=== PATIENT | female | born 1950 | race Caucasian/White ===

== ENCOUNTER 2016-12-21 16:18 | Emergency (ER) | payer BC ==
[2016-12-21 16:35] VITALS: PULSE 61; TEMP 98.1
--- NOTE | 2016-12-21 17:08 | CPEKG ---
Heart Rate: 60 RR Interval: 1000 P-R Interval: 156 QRSD Interval: 88 QT Interval: 440 QTC Interval: 440 P [place]: 44 QRS [place]: 20 T Wave [place]: 49 EKG Severity - NORMAL ECG - EKG Impression: SINUS RHYTHM Electronically Signed By: Erica Roe 21-Dec-2016 20:44:33
[2016-12-21] MEDS ORDERED: NS 1,000 ML IV ONE (17:16)
[2016-12-21] MEDS ORDERED: MECLIZINE HCL 25 MG TAB PO ONE (17:16)
--- NOTE | 2016-12-21 17:20 | EDPHY ---
H & P Stated Complaint: working outside yesterday/today with dizzyness/nausea HPI/ROS: CHIEF COMPLAINT: He had exposure, dizziness, nausea HISTORY OF PRESENT ILLNESS: Patient complains of working out in the heat yesterday morning and this morning. Yesterday she was feeling very dizzy, lightheaded nauseated around 10:30 a.m.. She stopped working, went inside and drink fluids. This significantly improved her symptoms throughout the day. She tried to work outside again today the symptoms returned again around tender 10 30. This time she went inside and drink fluids and did not improved. The dizziness is described as vertiginous and similar to previous episodes of vertigo. There is no headache. No neck pain or stiffness. No chest pain or shortness of breath. No syncope. Symptoms were worse with movement and position. They do improve with resting and lying still. If not improved today with fluid intake. was with her and said that she is very red she came inside that she was actually sweating. No other associated complaints or modifying factors REVIEW OF SYSTEMS: Ten systems reviewed and are negative unless otherwise noted in the HPI PAST MEDICAL HISTORY: Hypothyroid SOCIAL HISTORY: Nonsmoker. 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 Horizontal nystagmus, left greater than right. No vertical nystagmus. EOMs intact. No dysconjugate gaze. ENT, Mouth: Mucous membranes moist. EACs clear. Neck: Normal inspection, supple, non-tender Respiratory: Lungs are clear to auscultation. No wheezing, rhonchi or crackles. Cardiovascular: Regular rate and rhythm. No murmur. Pulses intact distally symmetrically. Gastrointestinal: Abdomen is soft and nontender Back: non-tender, no bony abnormalities Neurological: GCS 15. Cranial nerves 2-12 grossly intact. No pronator drift. No dysmetria. A&O, nonfocal, normal gait Skin: Warm and dry, no rash but no petechiae or purpura. Extremities: Nontender, no pedal edema Psychiatric: Mood and affect normal DIFFERENTIAL DIAGNOSES: Including but not limited to dehydration, acute kidney injury, vertigo, CVA, TIA , electrolyte disturbance, vertebrobasilar syndrome MDM: 5:15 p.m. Dizziness with nausea and heat exposure the last 2 days. She does have horizontal nystagmus, left greater than right. She has no headache. She has no focal deficits. Laboratory studies are pending. I have ordered IV fluid and meclizine. 6:00 p.m. Labs are all within normal limits. I have re-examined the patient. She is feeling significantly better at this time. This is after 1 L IV fluid, 12.5 mg of meclizine and 4 mg IV Zofran. We will ambulate her and re-evaluate. 6:35 p.m. Patient has ambulated without assistance. She has a steady gait. No ataxia. Her dizziness and nausea have significantly improved. I suspect this is a true peripheral vertigo. She will be treated with meclizine and Zofran. She is to follow up with primary care physician in the next 1-2 days. I have also provided ENT follow-up for her. She has strict return to the emergency department precautions for any worsening of symptoms, headache, unilateral complaints. She and her spouse at bedside are comfortable with this plan. She is discharged home in stable condition. SUPERVISION: Patient was evaluated in conjunction with the supervising physician Dr. Roe. Please see their note for details. Source: Patient, Family Exam Limitations: No limitations - Personal History Current Tetanus/Diphtheria Vaccine: Yes - Medical/Surgical History Hx Asthma: No Hx Chronic Respiratory Disease: No Hx Diabetes: No Hx Cardiac Disease: No Hx Renal Disease: No Hx Cirrhosis: No Hx Alcoholism: No Hx HIV/AIDS: No Hx Splenectomy or Spleen Trauma: No Other PMH: thyroid/ diverticulitis vertigo - Social History Smoking Status: Never smoked Constitutional: Initial Vital Signs Temperature (C) 98.1 F 12/21/16 16:33 Heart Rate 61 12/21/16 16:33 Respiratory Rate 20 12/21/16 16:33 Blood Pressure 170/89 H 12/21/16 16:33 O2 Sat (%) 95 12/21/16 16:33 O2 Delivery Mode Room Air Allergies/Adverse Reactions: Sulfa (Sulfonamide Antibiotics) Allergy (Intermediate, Verified 12/21/16 16:32) Hives Home Medications: Medication Instructions Recorded Levothyroxine Sodium [Synthroid] 50 mcg PO 05/20/11 Liothyronine Sodium [Cytomel 25 25 mcg PO 02/21/15 mcg (RX)] Meclizine HCl [Meclizine HCl 25 mg 25 mg PO BID PRN #15 tab 12/21/16 (RX,OTC)] Ondansetron Odt [Zofran Odt 4 mg 4 mg PO Q6 PRN #12 tab 12/21/16 (*)] Medical Decision Making - Data Points Laboratory Results: Laboratory Results 12/21/16 17:19 12/21/16 17:19 12/21/16 12/21/16 12/21/16 17:19 17:19 17:19 WBC 9.09 10^3/uL 10^3/uL (3.80-9.50) RBC 5.10 10^6/uL 10^6/uL (4.18-5.33) Hgb 15.9 g/dL g/dL (12.6-16.3) Hct 46.4 % % (38.0-47.0) MCV 91.0 fL fL (81.5-99.8) MCH 31.2 pg pg (27.9-34.1) MCHC 34.3 g/dL g/dL (32.4-36.7) RDW 14.0 % % (11.5-15.2) Plt Count 182 10^3/uL 10^3/uL (150-400) MPV 10.1 fL fL (8.7-11.7) Neut % (Auto) 74.6 % H % (39.3-74.2) Lymph % (Auto) 15.8 % % (15.0-45.0) [place] % (Auto) 6.7 % % (4.5-13.0) Eos % (Auto) 1.5 % % (0.6-7.6) Baso % (Auto) 0.8 % % (0.3-1.7) Nucleat RBC Rel Count 0.0 % % (0.0-0.2) Absolute Neuts (auto) 6.78 10^3/uL H 10^3/uL (1.70-6.50) Absolute Lymphs (auto) 1.44 10^3/uL 10^3/uL (1.00-3.00) Absolute Monos (auto) 0.61 10^3/uL 10^3/uL (0.30-0.80) Absolute Eos (auto) 0.14 10^3/uL 10^3/uL (0.03-0.40) Absolute Basos (auto) 0.07 10^3/uL 10^3/uL (0.02-0.10) Absolute Nucleated RBC 0.00 10^3/uL 10^3/uL (0-0.01) Immature Gran % 0.6 % % (0.0-1.1) Immature Gran # 0.05 10^3/uL 10^3/uL (0.00-0.10) PT 12.3 SEC SEC (12.0-15.0) INR 0.92 (0.83-1.16) APTT 27.9 SEC SEC (23.0-38.0) Sodium 134 mEq/L mEq/L (134-144) Potassium 4.3 mEq/L mEq/L (3.5-5.2) Chloride 101 mEq/L mEq/L (97-110) Carbon Dioxide 23 mEq/l mEq/l (22-31) Anion Gap 10 mEq/L mEq/L (8-16) BUN 19 mg/dL mg/dL (7-23) Creatinine 0.7 mg/dL mg/dL (0.6-1.0) Estimated GFR > 60 Glucose 103 mg/dL H mg/dL (70-100) Calcium 9.6 mg/dL mg/dL (8.5-10.4) Total Bilirubin 0.6 mg/dL mg/dL (0.1-1.4) Conjugated Bilirubin 0.2 mg/dL mg/dL (0.0-0.5) Unconjugated Bilirubin 0.4 mg/dL mg/dL (0.0-1.1) AST 24 IU/L IU/L (14-46) ALT 44 IU/L IU/L (9-52) Alkaline Phosphatase 84 IU/L IU/L (38-126) Troponin I < 0.012 ng/mL ng/mL (0-0.034) Total Protein 7.5 g/dL g/dL (6.3-8.2) Albumin 4.2 g/dL g/dL (3.5-5.0) Lipase 262.0 IU/L IU/L (23-300) Medications Given: Discontinued Medications Sodium Chloride (Ns) 1,000 mls @ 0 mls/hr IV ONCE ONE; Wide Open PRN Reason: Protocol Stop: 12/21/16 17:17 Last Admin: 12/21/16 17:40 Dose: 1,000 mls Meclizine HCl (Meclizine Hcl) 12.5 mg PO EDNOW ONE Stop: 12/21/16 17:17 Last Admin: 12/21/16 17:40 Dose: 12.5 mg Ondansetron HCl (Zofran) 4 mg IVP EDNOW ONE Stop: 12/21/16 17:28 Last Admin: 12/21/16 17:40 Dose: 4 mg Departure - Departure Disposition: Home, Routine, Self-Care Clinical Impression: Vertigo Condition: Good Instructions: Vertigo (ED) Additional Instructions: 1. Meclizine as prescribed as needed 2. Zofran as prescribed as needed 3. Follow up with primary care physician and ENT physicians 4. Return here for any worsening symptoms, any difficulty ambulating, any persistent vomiting, any headache, any slurred speech or facial droop Referrals: Holly Ocasio MD [Primary Care Provider] - As per Instructions Carly Capone MD [Medical Doctor] - As per Instructions Prescriptions: Meclizine HCl [Meclizine HCl 25 mg (RX,OTC)] 25 mg PO BID PRN #15 tab PRN Reason: Dizziness Ondansetron Odt [Zofran Odt 4 mg (*)] 4 mg PO Q6 PRN #12 tab PRN Reason: Nausea/Vomiting, Use 1st
[2016-12-21] MEDS ORDERED: ONDANSETRON 4 MG/2 ML VIAL ONE (17:23)
[2016-12-21] MEDS ORDERED: ONDANSETRON 4 MG/2 ML VIAL IVP ONE (17:27)
[2016-12-21 17:33] LABS: % IMMATURE GRANULYOCYTES 0.6 % (0.0-1.1); ABSOLUTE IMMATURE GRANULOCYTES 0.05 10^3/uL (0.00-0.10); ADD DIFF? NO; ADD MORPH? NO; ADD SCAN? NO; ATYPICAL LYMPHOCYTE FLAG 0 (0-99); FRAGMENT RBC FLAG 0 (0-99); HEMATOCRIT 46.4 % (38.0-47.0); HEMOGLOBIN 15.9 g/dL (12.6-16.3); LEFT SHIFT FLG 10 (0-99); LIPEMIA HEMOLYSIS FLAG 90 (0-99); MEAN CELL HEMOGLOBIN 31.2 pg (27.9-34.1); MEAN CELL HEMOGLOBIN CONCENTR. 34.3 g/dL (32.4-36.7); MEAN PLATELET VOLUME 10.1 fL (8.7-11.7); PLATELET CLUMPS FLAG 0 (0-99); PLATELET COUNT 182 10^3/uL (150-400)
[2016-12-21 17:39] LABS: ALANINE AMINOTRANSFERASE 44 IU/L (9-52); ALBUMIN 4.2 g/dL (3.5-5.0); ALKALINE PHOSPHATASE 84 IU/L (38-126); ANION GAP 10 mEq/L (8-16); ASPARTATE AMINOTRANSFERASE 24 IU/L (14-46); BILIRUBIN,TOTAL 0.6 mg/dL (0.1-1.4); BILIRUBIN-CONJUGATED 0.2 mg/dL (0.0-0.5); BILIRUBIN-UNCONJUGATED 0.4 mg/dL (0.0-1.1); CALCIUM 9.6 mg/dL (8.5-10.4); CARBON DIOXIDE 23 mEq/l (22-31); CHLORIDE 101 mEq/L (97-110); CREATININE 0.7 mg/dL (0.6-1.0); GLOMERULAR FILTRATION RATE > 60; GLUCOSE 103 mg/dL (70-100); POTASSIUM 4.3 mEq/L (3.5-5.2); SODIUM 134 mEq/L (134-144); TOTAL PROTEIN 7.5 g/dL (6.3-8.2)
[2016-12-21 17:41] LABS: APTT 27.9 SEC (23.0-38.0); INR 0.92 (0.83-1.16); PROTIME(PATIENT) 12.3 SEC (12.0-15.0)
[2016-12-21 17:50] LABS: TROPONIN I < 0.012 ng/mL (0-0.034)
[2016-12-21 18:48] VITALS: BP 160/98; RESP 16; O2SAT 92
== END 2016-12-21 18:47 | disposition home or self-care (01) ==
DX: R42 Dizziness and giddiness (principal); E86.9 Volume depletion, unspecified
CPT/HCPCS: 96374; J2405

== ENCOUNTER 2017-03-27 09:08 | Emergency (ER) | payer BC ==
--- NOTE | 2017-03-27 09:40 | EDPHY ---
H & P Time Seen by Provider: 03/27/17 09:22 HPI/ROS: Chief complaint. Vertigo HPI. 67-year-old female with vertigo for 1 day. Similar to previous symptoms. She took meclizine at 5:00 a.m. and felt better for a couple hours. Her symptoms now have returned and her dizziness is worse with moving her head and changing position. She is better with her head still. She has had nausea vomiting. No chest pain, shortness of breath, abdominal pain. She has had some URI symptoms for the last week. She had headache to the back of her head with vomiting today but when she is not vomiting she does not have a headache. Denies focal weakness or paresthesias ROS Constitutional. no fever/chills, no weakness Eyes. no problems with vision ENT. URI symptoms Cardiovascular. no chest pain Respiratory. no shortness of breath, no cough Abdominal. No abdominal pain but nausea and vomiting . no problems urinating MS. no calf pain/swelling, no neck/back pain, no joint pain Skin. no rash Lymph. no swollen glands Neuro. Headache with vomiting and dizziness Past Medical/Surgical History: Vertigo, hypothyroid, diverticulitis Social History: , nonsmoker, no alcohol Smoking Status: Never smoked Physical Exam: General Appearance: Alert well-developed female mild distress vital signs are stable Eyes: Pupils equal and round no pallor or injection. Horizontal nystagmus ENT, no hemotympanum or Sena sign no oral pharyngeal injection. Respiratory: There are no retractions, lungs are clear to auscultation. Cardiovascular: Regular rate and rhythm. Gastrointestinal: Abdomen is soft and nontender, no masses, bowel sounds normal. Neurological: Awake and alert, sensory and motor exams grossly normal. Speech is normal. Cranial nerves normal there is no pronator drift. [id number] intact. [id number] intact. Skin: Warm and dry, no rashes. Musculoskeletal: Neck is supple nontender. Extremities symmetrical, full range of motion. Psychiatric: Patient is oriented X 3, there is no agitation. Constitutional: Initial Vital Signs Temperature (C) 36.7 C 03/27/17 09:13 Heart Rate 79 03/27/17 09:13 Respiratory Rate 18 03/27/17 09:13 Blood Pressure 201/99 H 03/27/17 09:13 O2 Sat (%) 94 03/27/17 09:13 O2 Delivery Mode Room Air O2 (L/minute) 2 Allergies/Adverse Reactions: Sulfa (Sulfonamide Antibiotics) Allergy (Intermediate, Verified 03/27/17 09:18) Hives Home Medications: Medication Instructions Recorded Levothyroxine Sodium [Synthroid] 50 mcg PO 05/20/11 Liothyronine Sodium [Cytomel 25 25 mcg PO 02/21/15 mcg (RX)] Meclizine HCl [Meclizine HCl 25 mg 25 mg PO BID PRN #15 tab 12/21/16 (RX,OTC)] Azithromycin [Zithromax] 250 mg PO DAILY #6 tab 03/27/17 Meclizine HCl 25 mg PO Q6-8PRN PRN #10 tablet 03/27/17 Ondansetron Odt [Zofran Odt 4 mg 4 mg PO Q4 03/27/17 (*)] Ondansetron Odt [Zofran Odt] 4 mg PO Q4PRN PRN #4 tab 03/27/17 Medical Decision Making - Diagnostics EKG Interpretation: EKG interpreted by me shows normal sinus rhythm with normal interval. Left axis deviation. QRS is otherwise normal there is no significant ST elevation or depression. No arrhythmia. The rate is 58. Procedures: IV normal saline. Meclizine, Ativan, Zofran. ED Course/Re-evaluation: Re-evaluation at 11:35 a.m.-- Sleeping Re-evaluation again at 12:35 p.m.. Patient has her since her symptoms are resolved. She feels much better. The patient and I and her discussed laboratory evaluation including treatment plan criteria for return importance of follow-up and further evaluation. She expresses understanding and agreement. We discussed antibiotics for her upper respiratory congestion as this may be inciting and precipitating her vertigo. Differential Diagnosis: This appears to be peripheral vertigo. She had horizontal nystagmus. She is now essentially back to normal with symptoms resolved. She has normal neurologic exam. She does have upper respiratory infection. - Data Points Laboratory Results: Laboratory Results 03/27/17 09:35 03/27/17 09:35 03/27/17 03/27/17 09:35 09:35 WBC 8.83 10^3/uL 10^3/uL (3.80-9.50) RBC 5.35 10^6/uL H 10^6/uL (4.18-5.33) Hgb 16.8 g/dL H g/dL (12.6-16.3) Hct 48.1 % H % (38.0-47.0) MCV 89.9 fL fL (81.5-99.8) MCH 31.4 pg pg (27.9-34.1) MCHC 34.9 g/dL g/dL (32.4-36.7) RDW 13.5 % % (11.5-15.2) Plt Count 188 10^3/uL 10^3/uL (150-400) MPV 10.1 fL fL (8.7-11.7) Neut % (Auto) 78.3 % H % (39.3-74.2) Lymph % (Auto) 15.2 % % (15.0-45.0) [place] % (Auto) 4.1 % L % (4.5-13.0) Eos % (Auto) 0.2 % L % (0.6-7.6) Baso % (Auto) 0.6 % % (0.3-1.7) Nucleat RBC Rel Count 0.0 % % (0.0-0.2) Absolute Neuts (auto) 6.92 10^3/uL H 10^3/uL (1.70-6.50) Absolute Lymphs (auto) 1.34 10^3/uL 10^3/uL (1.00-3.00) Absolute Monos (auto) 0.36 10^3/uL 10^3/uL (0.30-0.80) Absolute Eos (auto) 0.02 10^3/uL L 10^3/uL (0.03-0.40) Absolute Basos (auto) 0.05 10^3/uL 10^3/uL (0.02-0.10) Absolute Nucleated RBC 0.00 10^3/uL 10^3/uL (0-0.01) Immature Gran % 1.6 % H % (0.0-1.1) Immature Gran # 0.14 10^3/uL H 10^3/uL (0.00-0.10) Sodium 135 mEq/L mEq/L (134-144) Potassium 3.9 mEq/L mEq/L (3.5-5.2) Chloride 103 mEq/L mEq/L (97-110) Carbon Dioxide 20 mEq/l L mEq/l (22-31) Anion Gap 12 mEq/L mEq/L (8-16) BUN 14 mg/dL mg/dL (7-23) Creatinine 0.6 mg/dL mg/dL (0.6-1.0) Estimated GFR > 60 Glucose 135 mg/dL H mg/dL (70-100) Calcium 9.6 mg/dL mg/dL (8.5-10.4) Troponin I < 0.012 ng/mL ng/mL (0.000-0.034) Medications Given: Discontinued Medications Acetaminophen (Tylenol) 1,000 mg PO EDNOW ONE Stop: 03/27/17 10:10 Last Admin: 03/27/17 10:20 Dose: 1,000 mg Sodium Chloride (Ns) 1,000 mls @ 0 mls/hr IV ONCE ONE; Wide Open PRN Reason: Protocol Stop: 03/27/17 10:08 Last Admin: 03/27/17 10:20 Dose: 1,000 mls Lorazepam (Ativan Injection) 0.5 mg IVP EDNOW ONE Stop: 03/27/17 10:10 Last Admin: 03/27/17 10:20 Dose: 0.5 mg Meclizine HCl (Meclizine Hcl) 25 mg PO EDNOW ONE Stop: 03/27/17 10:09 Last Admin: 03/27/17 10:20 Dose: 25 mg Ondansetron HCl (Zofran) 4 mg IVP EDNOW ONE Stop: 03/27/17 10:08 Last Admin: 03/27/17 10:20 Dose: 4 mg Departure - Departure Disposition: Home, Routine, Self-Care Clinical Impression: Vertigo Condition: Good Instructions: Vertigo (ED) Additional Instructions: May use meclizine every 6-8 hours. Zithromax is antibiotic. Zofran if needed for nausea. Drink plenty of fluids and stay hydrated. Return for worsening symptoms. Re-evaluation in 2 days if not continuing to improve Referrals: Holly Ocasio MD [Primary Care Provider] - 2-3 days, if not improved Prescriptions: Azithromycin [Zithromax] 250 mg PO DAILY #6 tab Meclizine HCl 25 mg PO Q6-8PRN PRN #10 tablet PRN Reason: Dizziness Ondansetron Odt [Zofran Odt] 4 mg PO Q4PRN PRN #4 tab PRN Reason: Nausea/Vomiting, Use 1st
[2017-03-27] MEDS ORDERED: NS 1,000 ML IV ONE (10:07)
[2017-03-27] MEDS ORDERED: ONDANSETRON 4 MG/2 ML VIAL IVP ONE (10:07)
[2017-03-27] MEDS ORDERED: MECLIZINE HCL 25 MG TAB PO ONE (10:08)
[2017-03-27] MEDS ORDERED: ACETAMINOPHEN 500 MG TAB PO ONE (10:09)
[2017-03-27] MEDS ORDERED: LORazepam 2 MG/ML INJ IVP ONE (10:09)
[2017-03-27 10:16] LABS: % IMMATURE GRANULYOCYTES 1.6 % (0.0-1.1); ABSOLUTE IMMATURE GRANULOCYTES 0.14 10^3/uL (0.00-0.10); ADD DIFF? NO; ADD MORPH? NO; ADD SCAN? NO; ATYPICAL LYMPHOCYTE FLAG 0 (0-99); FRAGMENT RBC FLAG 0 (0-99); HEMATOCRIT 48.1 % (38.0-47.0); HEMOGLOBIN 16.8 g/dL (12.6-16.3); LEFT SHIFT FLG 10 (0-99); LIPEMIA HEMOLYSIS FLAG 90 (0-99); MEAN CELL HEMOGLOBIN 31.4 pg (27.9-34.1); MEAN CELL HEMOGLOBIN CONCENTR. 34.9 g/dL (32.4-36.7); MEAN CELL VOLUME 89.9 fL (81.5-99.8); MEAN PLATELET VOLUME 10.1 fL (8.7-11.7); PLATELET CLUMPS FLAG 0 (0-99); PLATELET COUNT 188 10^3/uL (150-400); RED BLOOD CELL COUNT 5.35 10^6/uL (4.18-5.33); RED CELL DISTRIBUTION WIDTH 13.5 % (11.5-15.2)
[2017-03-27 10:21] LABS: ANION GAP 12 mEq/L (8-16); CALCIUM 9.6 mg/dL (8.5-10.4); CARBON DIOXIDE 20 mEq/l (22-31); CHLORIDE 103 mEq/L (97-110); CREATININE 0.6 mg/dL (0.6-1.0); GLOMERULAR FILTRATION RATE > 60; GLUCOSE 135 mg/dL (70-100); POTASSIUM 3.9 mEq/L (3.5-5.2); SODIUM 135 mEq/L (134-144)
[2017-03-27 10:23] VITALS: RESP 16
[2017-03-27 10:33] LABS: TROPONIN I < 0.012 ng/mL (0.000-0.034)
--- NOTE | 2017-03-27 10:48 | CPEKG ---
Heart Rate: 58 RR Interval: 1034 P-R Interval: 160 QRSD Interval: 84 QT Interval: 476 QTC Interval: 468 P [place]: 56 QRS [place]: -1 T Wave [place]: 38 EKG Severity - NORMAL ECG - EKG Impression: SINUS RHYTHM Electronically Signed By: Poncho Barnes 27-Mar-2017 15:31:56
[2017-03-27 12:03] VITALS: BP 157/77; PULSE 56; O2SAT 95
[2017-03-27 12:04] VITALS: TEMP 97.9
== END 2017-03-27 13:08 | disposition home or self-care (01) ==
DX: R42 Dizziness and giddiness (principal); R11.2 Nausea with vomiting, unspecified
CPT/HCPCS: 96374; J2060; J2405

== ENCOUNTER 2018-03-05 14:42 | Inpatient (IN) | payer BC, OTHER ==
--- NOTE | 2018-03-05 14:49 | EDPHY ---
H & P Stated Complaint: 2 weeks mid sterna cp radiates to back r neck/shoulder/burping Time Seen by Provider: 03/05/18 14:48 HPI/ROS: CHIEF COMPLAINT: Chest pain, dyspnea HISTORY OF PRESENT ILLNESS: The patient presents to the ED with a 2 week history of intermittent chest pain and increasing dyspnea on exertion. The patient describes a substernal chest discomfort which is not precipitated by exertion. There is some radiation of the pain to her right shoulder. She does report increasing dyspnea on exertion. The patient reports that she has been having belching and some epigastric pain after eating which is also new. She denies any asymmetric calf pain or swelling. She denies pleuritic chest pain. She currently reports 0/10 chest pain. Past medical history is significant for untreated hypertension. There is no family history of coronary artery disease per her report. REVIEW OF SYSTEMS: A comprehensive 10 point review of systems is otherwise negative aside from elements mentioned in the history of present illness. Source: Patient Exam Limitations: No limitations - Personal History Current Tetanus Diphtheria and Acellular Pertussis (TDAP): Yes - Medical/Surgical History Hx Asthma: No Hx Chronic Respiratory Disease: No Hx Diabetes: No Hx Cardiac Disease: No Hx Renal Disease: No Hx Cirrhosis: No Hx Alcoholism: No Hx HIV/AIDS: No Hx Splenectomy or Spleen Trauma: No Other PMH: thyroid/ diverticulitis vertigo - Social History Smoking Status: Never smoked - Physical Exam Exam: General Appearance: Alert, no distress Eyes: Pupils equal and round no pallor or injection ENT, Mouth: Mucous membranes moist Respiratory: There are no retractions, lungs are clear to auscultation Cardiovascular: Regular rate and rhythm Gastrointestinal: Tenderness to palpation in the epigastrium Neurological: A&O, normal motor function, normal sensory exam, normal cranial nerves Skin: Warm and dry, no rashes Musculoskeletal: Neck is supple nontender Extremities: symmetrical, full range of motion Psychiatric: Patient is oriented X 3, there is no agitation Constitutional: Initial Vital Signs Temperature (C) 36.8 C 03/05/18 14:44 Heart Rate 76 03/05/18 14:44 Respiratory Rate 18 03/05/18 14:44 Blood Pressure 192/98 H 03/05/18 14:44 O2 Sat (%) 95 03/05/18 14:44 O2 Delivery Mode Room Air Allergies/Adverse Reactions: Sulfa (Sulfonamide Antibiotics) Allergy (Intermediate, Verified 03/27/17 09:18) Hives Home Medications: Medication Instructions Recorded Herbals/Supplements -Info Only 1 ea PO DAILY 03/05/18 Levothyroxine [Synthroid 75 mcg 75 mcg PO DAILY06 03/05/18 (*)] Multivitamins [Multivitamin (*)] 1 each PO DAILY 03/05/18 Medical Decision Making - Diagnostics EKG Interpretation: EKG: Complete interpretation has been separately recorded in the [facility] archive. Summary impression: Sinus rhythm, ST segment elevation noted in leads V1 and V2 which appear consistent with septal hypertrophy. There is some suggestion of this on her prior EKG in 2017. Imaging Results: Right upper quadrant ultrasound: Images reviewed by myself and discussed with radiologist Dr. Bassem Hill. Impression: Normal Chest x-ray PA/lateral two view: Images reviewed by myself and discussed with radiologist Dr. Bassem Hill. Impression: Hiatal hernia, airway disease otherwise normal ED Course/Re-evaluation: The patient presents to the ED with several weeks of nonexertional chest pain, dyspnea on exertion and dyspepsia with right upper quadrant tenderness. The patient's initial EKG does demonstrate some repolarization changes noted in the septal leads. Her initial troponin was elevated at 0.25. I spoke with Dr. Sundeep Donovan on the telephone at 15:05. In reviewed the patient' s EKG. It appears to be isolated ST segment elevation in V2 only and does not meet criteria for STEMI. The patient will undergo an echocardiogram and get stat cardiology consultation by Dr. Donovan. The patient was given a 324 mg dose of aspirin. The patient will be admitted to the hospitalist service. I discussed her case with Dr. Walker at 3:45 p.m.. Right upper quadrant ultrasound is also been ordered for evaluation of her abdominal tenderness. 4:00 p.m.: The patient's blood pressure is 155/78. Differential Diagnosis: Differential diagnosis considered includes acute coronary syndrome, myocardial infarction, pericarditis, pancreatitis, cholecystitis, gastroesophageal reflux - Data Points Laboratory Results: Laboratory Results 03/05/18 14:55 03/05/18 14:55 03/05/18 03/05/18 03/05/18 15:30 14:59 14:55 WBC RBC Hgb Hct MCV MCH MCHC RDW Plt Count MPV Neut % (Auto) Lymph % (Auto) [place] % (Auto) Eos % (Auto) Baso % (Auto) Nucleat RBC Rel Count Absolute Neuts (auto) Absolute Lymphs (auto) Absolute Monos (auto) Absolute Eos (auto) Absolute Basos (auto) Absolute Nucleated RBC Immature Gran % Immature Gran # Sodium 141 mEq/L mEq/L (135-145) Potassium 4.3 mEq/L mEq/L (3.3-5.0) Chloride 108 mEq/L mEq/L (97-110) Carbon Dioxide 24 mEq/l mEq/l (22-31) Anion Gap 9 mEq/L mEq/L (8-16) BUN 19 mg/dL mg/dL (7-23) Creatinine 0.8 mg/dL mg/dL (0.6-1.0) Estimated GFR > 60 Glucose 117 mg/dL H mg/dL (70-100) Calcium 9.5 mg/dL mg/dL (8.5-10.4) Total Bilirubin 0.5 mg/dL mg/dL (0.1-1.4) Conjugated Bilirubin 0.1 mg/dL mg/dL (0.0-0.5) Unconjugated Bilirubin 0.4 mg/dL mg/dL (0.0-1.1) AST 32 IU/L IU/L (14-46) ALT 38 IU/L IU/L (9-52) Alkaline Phosphatase 91 IU/L IU/L (38-126) POC Troponin I 0.25 ng/mL H ng/mL (0.00-0.08) Troponin I 0.233 ng/mL H ng/mL (0.000-0.034) Total Protein 7.1 g/dL g/dL (6.3-8.2) Albumin 4.1 g/dL g/dL (3.5-5.0) Lipase 101 IU/L IU/L (23-300) 03/05/18 14:55 WBC 10.82 10^3/uL H 10^3/uL (3.80-9.50) RBC 5.30 10^6/uL 10^6/uL (4.18-5.33) Hgb 16.4 g/dL H g/dL (12.6-16.3) Hct 48.4 % H % (38.0-47.0) MCV 91.3 fL fL (81.5-99.8) MCH 30.9 pg pg (27.9-34.1) MCHC 33.9 g/dL g/dL (32.4-36.7) RDW 14.4 % % (11.5-15.2) Plt Count 206 10^3/uL 10^3/uL (150-400) MPV 10.2 fL fL (8.7-11.7) Neut % (Auto) 73.8 % % (39.3-74.2) Lymph % (Auto) 16.9 % % (15.0-45.0) [place] % (Auto) 6.3 % % (4.5-13.0) Eos % (Auto) 2.1 % % (0.6-7.6) Baso % (Auto) 0.6 % % (0.3-1.7) Nucleat RBC Rel Count 0.0 % % (0.0-0.2) Absolute Neuts (auto) 7.98 10^3/uL H 10^3/uL (1.70-6.50) Absolute Lymphs (auto) 1.83 10^3/uL 10^3/uL (1.00-3.00) Absolute Monos (auto) 0.68 10^3/uL 10^3/uL (0.30-0.80) Absolute Eos (auto) 0.23 10^3/uL 10^3/uL (0.03-0.40) Absolute Basos (auto) 0.07 10^3/uL 10^3/uL (0.02-0.10) Absolute Nucleated RBC 0.00 10^3/uL 10^3/uL (0-0.01) Immature Gran % 0.3 % % (0.0-1.1) Immature Gran # 0.03 10^3/uL 10^3/uL (0.00-0.10) Sodium Potassium Chloride Carbon Dioxide Anion Gap BUN Creatinine Estimated GFR Glucose Calcium Total Bilirubin Conjugated Bilirubin Unconjugated Bilirubin AST ALT Alkaline Phosphatase POC Troponin I Troponin I Total Protein Albumin Lipase Medications Given: Discontinued Medications Aspirin (Aspirin) 324 mg PO EDNOW ONE Stop: 03/05/18 15:45 Last Admin: 03/05/18 16:14 Dose: 324 mg Point of Care Test Results: Chemistry 03/05/18 14:59 POC Troponin I 0.25 ng/mL H ng/mL (0.00-0.08) Departure - Departure Disposition: [facility] [place] Inpatient Acute Clinical Impression: Acute coronary syndrome, Hiatal hernia Condition: Fair
[2018-03-05 15:05] LABS: PLATELET COUNT 206 10^3/uL (150-400)
[2018-03-05] MEDS ORDERED: ASPIRIN 81 MG CHEWABLE TAB PO ONE (15:44)
[2018-03-05] MEDS ORDERED: ONDANSETRON 4 MG/2 ML VIAL IVP PRN (15:45)
[2018-03-05] MEDS ORDERED: ONDANSETRON DISINTEGRATING 4 MG TAB PO PRN (15:45)
[2018-03-05] MEDS ORDERED: D5W 1/2 NS 1,000 ML IV SCH (15:45)
[2018-03-05] MEDS ORDERED: ACETAMINOPHEN 325 MG TAB PO PRN (15:45)
--- NOTE | 2018-03-05 16:00 | CPEKG ---
Test Reason : OPEN Blood Pressure : / mmHG Vent. Rate : 070 BPM Atrial Rate : 070 BPM P-R Int : 136 ms QRS Dur : 086 ms QT Int : 380 ms P-R-T Axes : 057 006 049 degrees QTc Int : 410 ms Sinus rhythm Anteroseptal infarct, age indeterminate Confirmed by Shaquille Zamora ([id number]) on 03/05/2018 4:00:05 PM Referred By: Confirmed By:Shaquille Zamora
--- NOTE | 2018-03-05 16:15 | ASMTCMCOM ---
CM Note CM Note Notes: Pt presented to the Emergency Department with chest pain and dyspnea. History includes untreated HTN, vertigo and diverticulitis. Pt is and lives with her . Per MD notes, pt to be admitted for further evaluation and treatment. Discharge needs remain unclear at this time; anticipate pt will likely return home independently when medically stable. CM will continue to follow. Discharge Plan: To be determined, likely independent Date Signed: 03/05/2018 04:14 PM Electronically Signed By:Janie De Anda RN
[2018-03-05] MEDS ORDERED: IOPAMIDOL (ISOVUE 370) 100 ML BTL IV ONE (17:09)
--- NOTE | 2018-03-05 18:08 | GCON ---
CARDIOLOGY CONSULTATION DATE OF CONSULTATION: 03/05/2018 INDICATION FOR CONSULTATION: Chest pain, shortness of breath with elevated troponin. HISTORY OF PRESENT ILLNESS: The patient is a pleasant 68-year-old female with a past medical of hypo thyroidism as well as a history of malignant melanoma status post surgical resection x2 in 2005, who presents to [facility] with ongoing complaints of substernal dany st tightness associated with right neck and jaw pain that radiates down the right arm. She also repo rts symptoms of increasing shortness of breath, dyspnea on exertion, exertional intolerance, fatigue, and associated diaphoresis with onset of chest pain. The patient states she was in her usual state of health until approximately 1 month ago when she bega n to develop right-sided neck/jaw pain and arm pain. She states these symptoms have been consistent for the last 4 weeks. She states these symptoms are often exacerbated with exertion, not improved wi th change in position, and unresponsive to medical therapy with nonsteroidal anti-inflammatory medica tions. In addition to her right-sided symptoms, she has been having intermittent episodes of substernal ches t tightness. She describes discomfort as "someone standing on my chest." She describes at worst the pain is 8/10 and is associated with shortness of breath, nausea, and diaphoresis. She states these episodes are occasionally associated with exertion but often occur spontaneously. She states the sym ptoms can last from 20 minutes to 1 hour and resolve spontaneously. She states she has been having 5 -6 episodes of chest pressure and tightness for the last 2 weeks every day. Currently, at the time of my exam, she is chest pain-free. She does have some of her ongoing right-s ided neck and pain down the right arm. The patient also describes discomfort that radiates from her chest to the mid scapula directly to her back. On exam today, she is markedly hypertensive with a blood pressure of 192/98. She states her primary care physician, Dr. Holly Ocasio, has been recommending antihypertensive medications for the last s everal years, which she has refused secondary to her concerns about "[employer]." The patient denies any complaints of palpitations, dizziness, lightheadedness, near syncope, or synco pe. She denies any complaints of PND, orthopnea, or lower extremity edema. She denies any complaint s of abdominal pain. No complaints of fever, chills, sweats, or weight loss. PAST MEDICAL HISTORY: Notable for hypothyroidism. She also has history of malignant melanoma x2, st atus post surgical resection 2005. PAST SURGICAL HISTORY: Includes appendectomy in 1977. MEDICATIONS ON ADMISSION: Include levothyroxine 75 mcg daily, multivitamin, and herbal supplement. ALLERGIES TO MEDICATION: Sulfa resulted in hives. PAST SOCIAL HISTORY: She is . She has 3 children. 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 She drink s a half glass of wine every other day. She does not use marijuana or illicit drugs. 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 FAMILY HISTORY: She has no siblings. Her mother at the age of 76 from Alzheimer's. Her father at the age of 91. EXAM: VITAL SIGNS: Blood pressure 192/98, heart rate 76 in sinus rhythm, respiratory rate of 18, ox ygen saturation 95% on room air. GENERAL: She is awake, alert, oriented, appropriate. No apparent distress. NECK: There is no evidence of JVP or carotid bruits. LUNGS: Clear to auscultation bilat erally. CARDIAC: S1, S2. Regular rate and rhythm. There are no murmurs, rubs, or gallops. PMI is not displaced. Anterior chest wall is nontender to palpation. ABDOMEN: Soft, nontender, nondisten ded. There is no pulsatile mass or abdominal bruit. EXTREMITIES: She does have 2+ radial pulses an d 2+ posterior tibial and dorsalis pedis pulses. DATA: White blood cell count of 10.82, hemoglobin of 16.4, hematocrit of 48.4, platelet count 206. Sodium 141, potassium 4.3, chloride 108, bicarb 24, BUN 19, creatinine 0.8, glucose 117, AST 32, ALT 38. Point care troponin of 0.25, serum troponin of 0.233, lipase 101, albumin 4.1, alkaline phosphat ase 91. ECG from 1453 this afternoon demonstrates sinus rhythm at 70 beats per minute. There are Q-waves in V1 and V2. There are biphasic T-waves in leads V2 and V3. Compared to previous ECG in March 2017, there is loss of R-wave in V2 suggestive of age-indeterminate anterior septal infarct. No evidence of acute ST-segment elevation myocardial infarction. Normal intervals. Normal axis. Chest x-ray demonstrates mild peribronchial thickening and a hiatal hernia. No other abnormalities n oted. Abdominal ultrasound is essentially negative with no evidence of choledocholithiasis. Liver, pancrea s, and right kidney are negative for acute abnormality. There is a 5 mm presumably benign echogenic focus in the right hepatic lobe. IMPRESSION: 1. Hypertensive urgency. 2. Substernal chest pressure with radiation to the neck, jaw, right shoulder, and midscapular region . SUMMARY: The patient is a pleasant 68-year-old female with ongoing symptoms for the last 1 month con cerning for symptoms consistent with angina. Symptoms also are suggestive of poorly controlled hyper tension. She reportedly has had a known history of borderline blood pressure control over the last s everal years and has avoided any antihypertensive medications despite recommendations from her primar care physician, Dr. Holly Ocasio. With blood pressure of 192/98 with pain to the mid shoulder blade would recommend CTA to rule out aor tic dissection. If there is no evidence of aortic dissection, would start patient on full-dose Lovenox, aspirin, and nitroglycerin drip for improved blood pressure control. Echocardiogram pending this evening. PLAN: 1. CTA to assess for possible aortic dissection. 2. Initiate nitroglycerin drip, titrate to systolic blood pressure in the 140s. 3. If CTA is negative, would start Lovenox 1 mg/kg subcu q.12 hours. 4. Stat echocardiogram to be performed this evening. 5. Patient will remain n.p.o. after midnight in anticipation of left heart catheterization to be per formed tomorrow morning. 6. Risks and benefits of left heart catheterization have been reviewed in detail with the patient. She is agreeable to pursue. 7. Will pursue left heart catheterization sooner if she becomes unstable or develops further progres teagan of symptoms despite medical management. 8. We will also check fasting lipid profile tomorrow morning. 9. The patient has no contraindication to dual antiplatelet therapy. She denies any history of cliff rgy. No history of bleeding issues. Last colonoscopy was 5 years ago and did have polyps removed. She states she is scheduled for a repeat colonoscopy in the near future. I have reviewed my findings with Dr. Zamora. /[id number]/MODL
--- NOTE | 2018-03-05 19:05 | ECHO ---
[email or web address] [address] Main: [phone] Fax: Transthoracic Echocardiogram Name: MARGO JOHNSON MR#: [id number] Study Date: 03/05/2018 Study Time: 05:57 PM Date of : 1950 Age: 68 year(s) Height: 162.6 cm (64 in.) Weight: 79.38 kg (175 lb.) BSA: 1.85 m2 Gender: Female Examination: Echo Indication: HTN Crisis, Chest Pain, Positive Troponin Image Quality: Contrast: Requested by: Andrew Walker BP: 196 mmHg/118 mmHg Heart Rate: Rhythm: Normal sinus rhythm Indication: HTN Crisis, Chest Pain, Positive Troponin Procedure Staff Microphone Operator: Kevin Champion RDCS Reading Physician: Julio Cesar Donovan MD Requesting Provider: Conclusions: Normal size left ventricle. Mild concentric LV hypertrophy. Normal global systolic LV function. EF is 72 %. No regional wall motion abnormality. Grade 1 diastolic dysfunction (abnormal relaxation). Normal RV function. The left atrium is normal in size. Evidence of atrial septal aneurys. The right atrium is normal in size. Mild tricuspid regurgitation is present. The pulmonary artery pressure is mildly increased. Right ventricular systolic pressure measures 42mmHg. No pericardial effusion. Measurements: Chambers Valvular Assessment AV/MV Valvular Assessment TV/PV Normal Normal Normal Name Value Range Name Value Range Name Value Range Ao Chasidy (MM): 3.1 cm (2.2 cm-3.7 AV Vmax: 1.26 m/s (1 m/s-1.7 TR Vmax: 3.05 mm/s ( - ) cm) m/s) TR PGmax: 37 mmHg ( - ) IVSd (2D): 1.2 cm (0.6 cm-1.1 AV maxP mmHg ( - ) syst. PAP: 42 mmHg ( - ) cm) LVOT Vmax: 1.03 m/s (0.7 m/s-1.1 PV Vmax: 0.88 m/s (0.6 m/s-0.9 LVDd (2D): 4.3 cm (3.9 cm-5.3 m/s) m/s) cm) MV E Vmax: 0.61 m/s ( - ) PV PGmax: 3 mmHg ( - ) LVDs (2D): 2.6 cm (2.1 cm-4 MV A Vmax: 1.12 m/s ( - ) cm) MV E/A: 0.54 ( - ) LVPWd (2D): 1.0 cm ( - ) LVEF (2D): 72 (>=54 %) Patient: MARGO JOHNSON Study Date: 03/05/2018 Page 1 of 2 05:57 PM Continued Measurements: Chambers Valvular Assessment AV/MV Valvular Assessment TV/PV Name Value Name Value Name Value LADs Lon.0 cm MV E/E' Septal: 16.00 CVP (est.): 5 mmHg LA Area: 19.2 cm2 MV E/E' Lateral: 12.50 LA Volume: 51 ml LA Volume Index: 27.6 ml/m2 Findings: Left Ventricle: Normal size left ventricle. Mild concentric LV hypertrophy. Normal global systolic LV function. EF is 72 %. No regional wall motion abnormality. Grade 1 diastolic dysfunction (abnormal relaxation). Right Ventricle: Normal size right ventricle. Normal RV function. Left Atrium: The left atrium is normal in size. Evidence of atrial septal aneurys. Right Atrium: The right atrium is normal in size. Mitral Valve: The mitral valve is normal in appearance and function. Trivial mitral valve regurgitation. Aortic Valve: The aortic valve is tri-leaflet. Minimal aortic cusp calcification is noted. There is no significant aortic valve regurgitation. Tricuspid Valve: The tricuspid valve appears normal. Mild tricuspid regurgitation is present. The pulmonary artery pressure is mildly increased. Right ventricular systolic pressure measures 42mmHg. Pulmonic Valve: The pulmonic valve is normal in appearance and function. Aorta: The aorta is normal. Pericardium: No pericardial effusion. (No Signature Object) Patient: MARGO JOHNSON Study Date: 03/05/2018 Page 2 of 2 05:57 PM [id number]
[2018-03-05] MEDS ORDERED: NITROGLYCERIN 0.4 MG BTL SL PRN (19:35)
[2018-03-05] MEDS ORDERED: hydrALAZINE 20 MG/ML VIAL IVP PRN (19:36)
--- NOTE | 2018-03-05 19:40 | PDGENHP ---
History and Physical - Chief Complaint Acute chest pain - History of Present Illness Primary care provider: Dr. Holly Ocasio HPI: 68-year-old female presenting with acute chest pain characterized as intense pressure located in the substernal area with associated dyspnea. She reports that the chest pain has intermittently occurred at rest and her shortness of breath is seemingly exacerbated with exertion. She has also had some radiation of the pain into the right shoulder and some belching which accompanies oral intake. Her symptoms have not been alleviated with NSAIDs, and she reports overall reduction exercise tolerance over the past 2 weeks. She does report that she has recently seen her primary care provider and her systolic blood pressure was notably 168 at that time. The patient elected for non pharmacologic management at that time. History Information - Allergies/Home Medication List Allergies/Adverse Reactions: Sulfa (Sulfonamide Antibiotics) Allergy (Intermediate, Verified 03/27/17 09:18) Hives Home Medications: Herbals/Supplements -Info Only 1 ea PO DAILY 03/05/18 [Last Taken Unknown] Levothyroxine [Synthroid 75 mcg (*)] 75 mcg PO DAILY06 03/05/18 [Last Taken ] Multivitamins [Multivitamin (*)] 1 each PO DAILY 03/05/18 [Last Taken Unknown] I have personally reviewed and updated: family history, medical history, social history, surgical history - Past Medical History hypertension (Untreated) Additional medical history: Hypothyroidism. 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 Review of Systems Review of Systems: ROS: 10pt was reviewed & negative except for what was stated in HPI & below Cardiac: Reports: chest pain Respiratory: Reports: shortness of breath Gastrointestinal: Reports: other (Belching) Physical Exam Physical Exam: Temp Pulse Resp BP Pulse Ox 36.6 C 64 12 148/94 H 94 03/05/18 18:40 03/05/18 18:40 03/05/18 18:40 03/05/18 18:40 03/05/18 18:40 Constitutional: no apparent distress, appears nourished, not in pain Eyes: PERRL, anicteric sclera, EOMI Ears, Nose, Mouth, Throat: moist mucous membranes, hearing normal, ears appear normal, no oral mucosal ulcers Cardiovascular: regular rate and rhythym, no murmur, rub, or gallop, No edema Respiratory: no respiratory distress, no rales or rhonchi, clear to auscultation Gastrointestinal: normoactive bowel sounds, soft, non-tender abdomen, no palpable masses, No distension Skin: warm, No erythema, No rash Musculoskeletal: other (Full range of motion bilateral shoulders without any pain elicited, no tenderness to palpation over the left pectoralis muscle) Neurologic: AAOx3, sensation intact bilaterally, No weakness Psychiatric: interacting appropriately, not anxious, not encephalopathic, thought process linear Lab Data & Imaging Review 03/05/18 14:55 03/05/18 14:55 WBC 10.82 10^3/uL (3.80-9.50) H 03/05/18 14:55 RBC 5.30 10^6/uL (4.18-5.33) 03/05/18 14:55 Hgb 16.4 g/dL (12.6-16.3) H 03/05/18 14:55 Hct 48.4 % (38.0-47.0) H 03/05/18 14:55 MCV 91.3 fL (81.5-99.8) 03/05/18 14:55 MCH 30.9 pg (27.9-34.1) 03/05/18 14:55 MCHC 33.9 g/dL (32.4-36.7) 03/05/18 14:55 RDW 14.4 % (11.5-15.2) 03/05/18 14:55 Plt Count 206 10^3/uL (150-400) 03/05/18 14:55 MPV 10.2 fL (8.7-11.7) 03/05/18 14:55 Neut % (Auto) 73.8 % (39.3-74.2) 03/05/18 14:55 Lymph % (Auto) 16.9 % (15.0-45.0) 03/05/18 14:55 Callaway % (Auto) 6.3 % (4.5-13.0) 03/05/18 14:55 Eos % (Auto) 2.1 % (0.6-7.6) 03/05/18 14:55 Baso % (Auto) 0.6 % (0.3-1.7) 03/05/18 14:55 Nucleat RBC Rel Count 0.0 % (0.0-0.2) 03/05/18 14:55 Absolute Neuts (auto) 7.98 10^3/uL (1.70-6.50) H 03/05/18 14:55 Absolute Lymphs (auto) 1.83 10^3/uL (1.00-3.00) 03/05/18 14:55 Absolute Monos (auto) 0.68 10^3/uL (0.30-0.80) 03/05/18 14:55 Absolute Eos (auto) 0.23 10^3/uL (0.03-0.40) 03/05/18 14:55 Absolute Basos (auto) 0.07 10^3/uL (0.02-0.10) 03/05/18 14:55 Absolute Nucleated RBC 0.00 10^3/uL (0-0.01) 03/05/18 14:55 Immature Gran % 0.3 % (0.0-1.1) 03/05/18 14:55 Immature Gran # 0.03 10^3/uL (0.00-0.10) 03/05/18 14:55 Sodium 141 mEq/L (135-145) 03/05/18 14:55 Potassium 4.3 mEq/L (3.3-5.0) 03/05/18 14:55 Chloride 108 mEq/L (97-110) 03/05/18 14:55 Carbon Dioxide 24 mEq/l (22-31) 03/05/18 14:55 Anion Gap 9 mEq/L (8-16) 03/05/18 14:55 BUN 19 mg/dL (7-23) 03/05/18 14:55 Creatinine 0.8 mg/dL (0.6-1.0) 03/05/18 14:55 Estimated GFR > 60 03/05/18 14:55 Glucose 117 mg/dL (70-100) H 03/05/18 14:55 Calcium 9.5 mg/dL (8.5-10.4) 03/05/18 14:55 Total Bilirubin 0.5 mg/dL (0.1-1.4) 03/05/18 14:55 Conjugated Bilirubin 0.1 mg/dL (0.0-0.5) 03/05/18 14:55 Unconjugated Bilirubin 0.4 mg/dL (0.0-1.1) 03/05/18 14:55 AST 32 IU/L (14-46) 03/05/18 14:55 ALT 38 IU/L (9-52) 03/05/18 14:55 Alkaline Phosphatase 91 IU/L (38-126) 03/05/18 14:55 POC Troponin I 0.25 ng/mL (0.00-0.08) H 03/05/18 14:59 Troponin I 0.233 ng/mL (0.000-0.034) H 03/05/18 15:30 Total Protein 7.1 g/dL (6.3-8.2) 03/05/18 14:55 Albumin 4.1 g/dL (3.5-5.0) 03/05/18 14:55 Lipase 101 IU/L (23-300) 03/05/18 14:55 Visualized and Interpreted EKG results: Yes EKG Interpretation: Positive for: other (Normal sinus rhythm with ST elevation isolated in V2, Q-wave in lead 3, T-wave inversions in leads V2 to V3) Assessment & Plan Assessment: 68-year-old female presents with acute chest pain and dyspnea most likely secondary to acute coronary syndrome Plan: 1. Acute coronary syndrome. Suspected, acute, new problem this provider, further workup indicated. Indicated by positive troponin 0.25, leukocytosis, chest pain with exertional symptoms, dynamic EKG changes which may represent either missed myocardial infarction or acute coronary syndrome -reviewed outside records including 03/27/2017 emergency department report for [facility] by Dr. Poncho Barnes, there was an EKG at that time which demonstrated normal T-waves in leads V2 to V3 -currently chest pain free but if recurs, give sublingual nitroglycerin -treat with aspirin, Lovenox, statin, oxygen, hold beta-mirna given sinus bradycardia -cycle cardiac enzymes -cardiac catheterization in a.m. 2. Hypertensive emergency. Systolic blood pressure 192 on presentation, improved with treatment of chest discomfort -discussed with Dr. Sundeep Donovan, we agreed that if the patient's chest discomfort recurs, in the setting of significantly elevated systolic blood pressure, would recommend treating with sublingual nitroglycerin and subsequent nitroglycerin drip if needed -patient will most likely require an oral antihypertensive medication moving forward, favor DEANDRE-inhibitor, initiate 5 mg lisinopril Diet. Regular, NPO after midnight with IV fluids Prophylaxis. Moderate risk patient, on Lovenox Code. Full Disposition. Anticipated discharge 03/06, pending stability of above. If patient requires prolonged length of stay experiences any additional complications from a cardiac standpoint, she shall be upgraded to inpatient admission status tomorrow.
[2018-03-05] MEDS: LISINOPRIL 2.5 MG TAB PO SCH (20:35)
[2018-03-05] MEDS: ENOXAPARIN 80 MG/0.8 ML SYR SC SCH (20:35)
[2018-03-05] MEDS: ATORVASTATIN CALCIUM 40 MG TAB PO SCH (20:41)
[2018-03-06 04:21] LABS: PLATELET COUNT 181 10^3/uL (150-400)
[2018-03-06] MEDS ORDERED: Herbals/Supplements -Info Only PO SCH (09:00)
[2018-03-06] MEDS: LISINOPRIL 2.5 MG TAB PO SCH (09:03)
[2018-03-06] MEDS: MULTIVITAMINS 1 EACH TAB PO SCH (09:03)
[2018-03-06] MEDS: LEVOTHYROXINE 75 MCG TAB PO SCH (09:03)
[2018-03-06] MEDS: ASPIRIN EC 325 MG TAB PO SCH (09:03)
[2018-03-06] MEDS: ATORVASTATIN CALCIUM 40 MG TAB PO SCH (09:04)
[2018-03-06] MEDS: ENOXAPARIN 80 MG/0.8 ML SYR SC SCH (10:06)
[2018-03-06] MEDS ORDERED: FAMOTIDINE 20 MG TAB PO ONE (10:16)
[2018-03-06] MEDS ORDERED: diphenhydrAMINE 25 MG CAP PO ONE ×2 (10:16→10:57)
[2018-03-06] MEDS ORDERED: DIAZEPAM 5 MG TAB PO ONE (10:16)
--- NOTE | 2018-03-06 10:28 | PDCARPN ---
Cardiology Progress Note Assessment/Plan: 68 year-old female with untreated hypertension admitted for intermittent episodes of chest discomfort. ECG demonstrates precordial biphasic T-waves that are new compared to a year ago. Troponin up to 0.359. Echo demonstrates normal LV systolic function without regional wall motion abnormalities and age-related valvular changes without hemodynamically significant valvular dysfunction. Cardiac catheterization recommended. Details of procedure and complications risks discussed with the patient and her . Will plan on procedure sometime today. 03/06/18 10:26 Subjective: No chest pain today. Reviewed/Discussed With: family Objective: Vital Signs (8 Hrs) Temp Pulse Resp BP Pulse Ox 03/06/18 07:31 36.8 C 66 16 142/74 H 92 03/06/18 04:32 36.7 C 67 16 146/80 H 94 Intake/Output (24 Hrs) 03/05/18 03/06/18 03/07/18 05:59 05:59 05:59 Intake Total 1450 Balance 1450 Intake: Oral (ml) 750 IV Intake (ml) 700 Other: Weight 81.7 kg Number of Voids Toilet 1 Result Diagrams: 03/06/18 03:42 03/06/18 03:42 Cardiac Labs: Cardiac Lab Results (72 Hrs) 03/06/18 03:42 Troponin I 0.359 H - Physical Exam Constitutional: WDWN, no apparent distress Eyes: anicteric sclera Ears, Nose, Mouth, Throat: moist mucous membranes Cardiovascular: regular rate and rhythm, no murmurs, no rubs, no gallops Respiratory: clear to auscultate bilat Gastrointestinal: normoactive bowel sounds, no tenderness, no masses Skin: no rashes, no edema Neurologic: AAOx3 Psychiatric: not anxious ICD10 Worksheet Patient Problems: Problems Problem Status Onset Acute coronary syndrome Acute Hiatal hernia Acute
--- NOTE | 2018-03-06 10:43 | PDHPUP ---
History & Physical Update H&P update statement: This history and physical update is based on an assessment of the patient which was completed after admission or registration (within 24 hours), but prior to the surgery/procedure. H&P update: H&P reviewed & patient examined, no change in patient's condition since H&P completed (Giovanny test on right wrist normal at < 5 sec.)
[2018-03-06] MEDS ORDERED: LIDOCAINE 1% 300 MG/30 ML SDV ONE (10:45)
[2018-03-06] MEDS ORDERED: fentaNYL 100 MCG/2 ML INJ ONE (10:46)
[2018-03-06] MEDS ORDERED: MIDAZOLAM 2 MG/2 ML VIAL ONE (10:46)
[2018-03-06] MEDS ORDERED: HEPARIN 10,000 UNIT/10 ML MDV (1,000 UNIT/ML) ONE (10:46)
[2018-03-06] MEDS ORDERED: VERAPAMIL 5 MG/2 ML VIAL ONE (10:46)
[2018-03-06] MEDS ORDERED: IOPAMIDOL (ISOVUE-370) 150 ML BTL IV ONE (10:47)
--- NOTE | 2018-03-06 10:47 | PDPROPOC ---
Sedation Plan of Care Sedation Plan of Care: vital signs stable, mental status noted, patient educated of risks, benefits, alternatives, patient can tolerate sedation ASA Classification: ASA 2 Planned drugs: fentanyl, midazolam Mallampati Score: Class 2 Mallampati Reference Image: Patient passed 3-3-2 rule?: Yes
[2018-03-06] MEDS ORDERED: ASPIRIN EC 325 MG TAB PO ONE (10:57)
[2018-03-06] MEDS ORDERED: DIAZEPAM 5 MG TAB ONE (10:57)
[2018-03-06] MEDS ORDERED: FAMOTIDINE 20 MG TAB ONE (10:57)
[2018-03-06] MEDS ORDERED: NITROGLYCERIN 1,500 MCG/15 ML VIAL MISC ONE (11:55)
[2018-03-06] MEDS ORDERED: PRASUGREL HCL 10 MG TAB ONE (12:07)
[2018-03-06] MEDS ORDERED: PRASUGREL HCL 10 MG TAB PO ONE (12:25)
[2018-03-06] MEDS ORDERED: HYDROCODONE/APAP 5/325 TAB PO PRN (12:25)
[2018-03-06] MEDS ORDERED: ATROPINE SULFATE 1 MG/10 ML SYR IVP PRN (12:25)
[2018-03-06] MEDS ORDERED: TEMAZEPAM 15 MG CAP PO PRN (12:25)
[2018-03-06] MEDS ORDERED: NS 1,000 ML IV SCH (12:30)
--- NOTE | 2018-03-06 12:34 | PDDXCAT ---
Diagnostic Cath Note - . Date: 03/06/18 Labor Relations Officer: Patrick Indication: other (Unstable angina) - Procedure Access: right wrist Procedure: left heart catheterization, coronary angiography, left ventriculogram , other (PCI of LAD and first diagonal branch) - Materials Left Heart Cath size: 5F Left Heart Cath materials: other (TIG) - Findings-Left Heart Catheterization LM: Angiographically normal. LAD: Mid-LAD with focal >90% lesion just after the origin of the first diagonal branch with BRENDAN II flow distally. First diagonal with 20% ostial lesion. Remainder of LAD and diagonals with minimal irregularities. LCX: Minimal irregularities. RCA: Angiographically normal. LVEF: 70% Wall motion: Normal. Complications: None Estimated blood loss: <50ml Closure method: TR Band Assessment: 1) Normal LV systolic function. 2) CAD as described above. 3) Successful PCI of the LAD using a single drug coated stent and balloon angioplasty of the first diagonal branch. Intervention: Based on patient's clinical history and diagnostic angiography, the decision was made to perform PCI of the LAD. The patient received 7000 units of intravenous heparin. A 5 Arabic LBU 3.5 guide catheter was advanced to the left masin. An Intuition guidewire was advanced to the distal portion of the LAD. Predilatation the target lesion was performed with a 2.5 x 8 mm Emerge balloon. A 2.5 x 16 mm Synergy stent was then positioned at the target lesion. The stent spanned the oroigin of the diagonal branch. The stent was deployed at high pressure. Subsequent angiograms demonstrated 0% residual stenosis and BRENDAN-III flow in the LAD. The origin of the first diagonal branch now exhibited approximately 60% ostial narrowing. The Intuition guidewire was withdrawn and was redirected into the diagonal branch. Angioplasty of the ostium of the first diagonal branch was performed using a 2.25 x 8 mm Emerge balloon. Final angiograms demonstrated 0% residual stenosis in the LAD and 20% residual stenosis at the ostium of the first branch. BRENDAN-III flow in both vessels. Patient Problems: Problems Problem Status Onset Acute coronary syndrome Acute Hiatal hernia Acute
--- NOTE | 2018-03-06 13:50 | HOSPPROG ---
Hospitalist Progress Note Assessment/Plan: # NSTEMI s/p PCI to LAD - cont prasugrel and asa - lipitor for LDL 126 # htn - will need much better control - cont lisinopril, will uptitrate Subjective: CP resolved; s/p cath, PCI to LAD Objective: Vital Signs Temp Pulse Resp BP Pulse Ox 36.6 C 59 L 16 160/90 H 97 03/06/18 13:44 03/06/18 13:44 03/06/18 13:44 03/06/18 13:44 03/06/18 13:44 Laboratory Results 03/06/18 03:42 03/06/18 03:42 03/05/18 03/06/18 03/07/18 05:59 05:59 05:59 Intake Total 1450 Balance 1450 high risk with PCI to LAD - Physical Exam Constitutional: no apparent distress, appears nourished Cardiovascular: regular rate and rhythym, no murmur, rub, or gallop Respiratory: no respiratory distress, no rales or rhonchi, clear to auscultation Gastrointestinal: soft, non-tender abdomen, no palpable masses, No guarding, No rebound, No distension ICD10 Worksheet Patient Problems: Problems Problem Status Onset Acute coronary syndrome Acute Hiatal hernia Acute
--- NOTE | 2018-03-06 15:33 | PDMN ---
Medical Necessity Medical necessity: M40 angina: unstable angina- req intervention with rising trop. (.233, .359) LHC,angio,LVR with 2 PCI to LAD and 1st Diagonal status changed to INPT 03/06/18
--- NOTE | 2018-03-06 16:04 | ASMTCMCOM ---
CM Note CM Note Notes: 03/06/2018 Case Management Note Discussed pt during rounds this morning. Met w/pt and this afternoon. There are no identified case management d/c needs d/t pt marital status and independence in ADL's prior to admission. There are no therapy evals ordered at this time. Primary Care Provider is Dr. Lopez. Case Management d/c poc: independent with follow up as directed. Case Management to follow. Date Signed: 03/06/2018 04:04 PM Electronically Signed By:Yessenia Jha RN
[2018-03-07] MEDS: LEVOTHYROXINE 75 MCG TAB PO SCH (05:15)
[2018-03-07] MEDS: ATORVASTATIN CALCIUM 40 MG TAB PO SCH (08:00)
[2018-03-07] MEDS: MULTIVITAMINS 1 EACH TAB PO SCH (08:00)
[2018-03-07] MEDS: ASPIRIN EC 325 MG TAB PO SCH (08:01)
[2018-03-07] MEDS ORDERED: LISINOPRIL 10 MG TAB PO SCH (09:00)
[2018-03-07] MEDS ORDERED: PRASUGREL HCL 10 MG TAB PO SCH (09:00)
--- NOTE | 2018-03-07 11:02 | PDCARPN ---
Cardiology Progress Note Assessment/Plan: Cardiac catheterization yesterday demonstrated essentially normal circumflex and right coronary arteries. The LAD had a focal stenosis greater than 90% with reduced BRENDAN flow grade distal to the lesion. She underwentwent PCI of the LAD with placement of a single drug-coated stent. The ostium of the first diagonal branch was treated with angioplasty through "stent [facility]". Overnight, she has had no cardiac symptoms or problems at her right radial catheterization site. I had long discussion with the patient, her , and her daughter regarding details of her procedure and the components of secondary prevention. She will need dual antiplatelet therapy for 12 months. She has been started on antihypertensive therapy and a statin. My office has been instructed to contact her to arrange a followup appointment with me in the next 2-3 weeks. She plans to attend cardiac rehabilitation 03/07/18 11:02 Subjective: No complaints. Reviewed/Discussed With: family, hospitalist Time Spent with Patient: greater than 25 minutes Time Spent with Patient: Greater than 25 minutes spent on this patients care, greater than 50% of time spent counseling, educating, and coordinating care regarding the above mentioned plan. Objective: Vital Signs (8 Hrs) Temp Pulse Resp BP Pulse Ox 03/07/18 07:31 36.6 C 81 18 159/77 H 93 03/07/18 04:00 36.6 C 63 20 157/85 H 96 Intake/Output (24 Hrs) 03/06/18 03/07/18 03/08/18 05:59 05:59 05:59 Intake Total 3025 Output Total 550 Balance 2475 Intake: Oral (ml) 1025 IV Intake (ml) 1000 IV Infused (ml) 1000 Ns 1,000 ml @ 100 mls/hr 1000 IV CONT JOSE Rx#: [id number] Output: Urine (ml) 550 Toilet 550 Other: Intake Quantity Yes Sufficient Number of Voids Toilet 3 Result Diagrams: 03/06/18 03:42 03/06/18 03:42 - Physical Exam Constitutional: WDWN, no apparent distress Ears, Nose, Mouth, Throat: moist mucous membranes Cardiovascular: regular rate and rhythm, no murmurs, no rubs, no gallops Respiratory: clear to auscultate bilat Gastrointestinal: normoactive bowel sounds, no tenderness, no masses Skin: no rashes, no edema Neurologic: AAOx3 Psychiatric: not anxious ICD10 Worksheet Patient Problems: Problems Problem Status Onset Acute coronary syndrome Acute Hiatal hernia Acute
[2018-03-07 11:27] VITALS: BP 157/86
--- NOTE | 2018-03-07 13:11 | GDS ---
ALL DIAGNOSES: 1. Fse-CH-ilkmvlw elevation myocardial infarction. 2. Hypertension. HOSPITAL COURSE: A 68-year-old female presented with chest pain. She had an elevated troponin and a bnormal EKG. Because of this, she was taken [facility] and received a drug-eluting stent to her LAD. She had no complications post cath. She will continue on Brilinta as well as aspirin per Card iology. Lipitor has been started for an LDL of 126. Her blood pressures have been elevated. I have started her on lisinopril 20 mg. Her resting heart rate is in the 50s and 60s, making a beta blocke r difficult. She will follow up with Dr. Nguyen in 2-3 weeks for ongoing management. I have discu ssed the importance of taking Brilinta as well as aspirin with her. She is otherwise discharged home in stable condition. BILLING: I spent more than 30 minutes on the day of discharge coordinating care. /[id number]/MODL
--- NOTE | 2018-03-07 16:35 | ASDISCHSUM ---
Discharge Information Plan Status:Home with No Needs Medically Cleared to Leave: Discharge Date:03/07/2018 12:09 PM CM D/C Disposition:Home, Routine, Self-Care ADT D/C Disposition:Home, Routine, Self-Care Projected Discharge Date:03/07/2018 12:09 PM Transportation at D/C:Family Discharge Delay Reason: Follow-Up Date:03/07/2018 12:09 PM Discharge Slot: Final Diagnosis: Placement Information Patient Contact Information Contact Name:JAVIER Relationship: Address:[address] Work Phone: City:[place] Alternate Phone: [facility]/Zip Code:[place] [address] Email: Financial Information Financial Class:BCOP Primary Plan Desc:BC OUT OF STATE [facility] Primary Plan Number:[id number] Secondary Plan Desc:MEDICARE INPATIENT Secondary Plan Number:[id number] Assessment Information LACE LACE Length of stay for Answers: Less than 1 day current admission Comorbidities - select Answers: Other Notes: untreated all that apply HTN, vertigo, diverticu lit is # of Emergency department Answers: 1-2 visits in the last 6 months Score: 2 Date Signed: 03/07/2018 04:33 PM Electronically Signed By:Dejah Rice [facility] CM Progress Note CM Note CM Note Notes: Pt presented to the Emergency Department with chest pain and dyspnea. History includes untreated HTN, vertigo and diverticulitis. Pt is and lives with her . Per MD notes, pt to be admitted for further evaluation and treatment. Discharge needs remain unclear at this time; anticipate pt will likely return home independently when medically stable. CM will continue to follow. Discharge Plan: To be determined, likely independent Date Signed: 03/05/2018 04:14 PM Electronically Signed By:Janie De Anda RN [facility] CM Progress Note CM Note CM Note Notes: 03/06/2018 Case Management Note Discussed pt during rounds this morning. Met w/pt and this afternoon. There are no identified case management d/c needs d/t pt marital status and independence in ADL's prior to admission. There are no therapy evals ordered at this time. Primary Care Provider is Dr. Lopez. Case Management d/c poc: independent with follow up as directed. Case Management to follow. Date Signed: 03/06/2018 04:04 PM Electronically Signed By:Yessenia Jha RN Intervention Information
--- NOTE | 2018-03-07 17:46 | CPEKG ---
Test Reason : OPEN Blood Pressure : / mmHG Vent. Rate : 060 BPM Atrial Rate : 060 BPM P-R Int : 160 ms QRS Dur : 087 ms QT Int : 443 ms P-R-T Axes : 047 023 060 degrees QTc Int : 443 ms Sinus rhythm Confirmed by Wes Morgan ([id number]) on 03/07/2018 5:46:04 PM Referred By: Confirmed By:Wes Morgan
== END 2018-03-07 12:09 | disposition home or self-care (01) | DRG 247 ==
LOC: INTOOBSV 15:43 → F2W 18:20 → OBSVTOIN 03-06 13:45
PROVIDERS: ADMIT Internal Medicine; ATTEND Internal Medicine
PROC: 02703ZZ Dilation of Coronary Artery, One Artery, Percutaneous Approach (ICD-10-PCS; principal; 2018-03-06)
PROC: B2151ZZ Fluoroscopy of Left Heart using Low Osmolar Contrast (ICD-10-PCS; principal; 2018-03-06)
PROC: 027034Z Dilation of Coronary Artery, One Artery with Drug-eluting Intraluminal Device, Percutaneous Approach (ICD-10-PCS; principal; 2018-03-06)
PROC: 4A023N7 Measurement of Cardiac Sampling and Pressure, Left Heart, Percutaneous Approach (ICD-10-PCS; principal; 2018-03-06)
DX: I21.4 Non-ST elevation (NSTEMI) myocardial infarction (principal); I25.10 Atherosclerotic heart disease of native coronary artery without angina pectoris; I10 Essential (primary) hypertension; E03.9 Hypothyroidism, unspecified; Z85.820 Personal history of malignant melanoma of skin
CPT/HCPCS: 81225-90; 84484-PO; C1725; C1769; C1874; C1887; C9600; G0378; J1644; J1650; J2250; J3010; Q9967

== ENCOUNTER 2018-04-26 09:08 | Emergency (ER) | payer BC, OTHER ==
--- NOTE | 2018-04-26 09:17 | EDPHY ---
H & P Time Seen by Provider: 04/26/18 09:16 HPI/ROS: CHIEF COMPLAINT: Episodic chest pain HISTORY OF PRESENT ILLNESS: The patient presents to the ED with complaints of episodic chest pain for past week. The patient is status post stent on March 05 2018. Over the past week she has had intermittent nonexertional chest pain with some radiation to her back. She awoke today at 4:30 a.m. In the morning with acute chest pain. It has persisted prompting her visit to the emergency department. She currently rates the pain as a 4 or 5/10. The patient reports that it is substernal and slightly left of her sternum. She denies any radiation to her back jaw or legs currently. The patient has been compliant with her Plavix and other medications. The patient denies any asymmetric calf pain or swelling. She denies pleuritic chest pain. REVIEW OF SYSTEMS: A comprehensive 10 point review of systems is otherwise negative aside from elements mentioned in the history of present illness. Source: Patient Exam Limitations: No limitations - Medical/Surgical History Hx Asthma: No Hx Chronic Respiratory Disease: No Hx Diabetes: No Hx Cardiac Disease: No Hx Renal Disease: No Hx Cirrhosis: No Hx Alcoholism: No Hx HIV/AIDS: No Hx Splenectomy or Spleen Trauma: No Other PMH: thyroid, diverticulitis, vertigo, knee injury, htn, - Social History Smoking Status: Never smoked - Physical Exam Exam: General Appearance: Alert, no distress Eyes: Pupils equal and round no pallor or injection ENT, Mouth: Mucous membranes moist Respiratory: There are no retractions, lungs are clear to auscultation Cardiovascular: Regular rate and rhythm Gastrointestinal: Abdomen is soft and nontender, no masses, bowel sounds normal Neurological: A&O, normal motor function, normal sensory exam, normal cranial nerves Skin: Warm and dry, no rashes Musculoskeletal: Neck is supple nontender, specifically no evidence of DVT Extremities: symmetrical, full range of motion Constitutional: Initial Vital Signs Temperature (C) 36.7 C 04/26/18 09:21 Heart Rate 65 04/26/18 09:21 Respiratory Rate 18 04/26/18 09:21 Blood Pressure 177/86 H 04/26/18 09:21 O2 Sat (%) 97 04/26/18 09:21 O2 Delivery Mode Room Air Allergies/Adverse Reactions: Sulfa (Sulfonamide Antibiotics) Allergy (Intermediate, Verified 10/15/17 09:18) Hives Home Medications: Medication Instructions Recorded Levothyroxine [Synthroid 75 mcg 75 mcg PO DAILY06 03/05/18 (*)] Multivitamins [Multivitamin (*)] 1 each PO DAILY 03/05/18 Aspirin EC [Aspirin EC 325 mg (*)] 325 mg PO DAILY tab 03/07/18 Atorvastatin Calcium [Lipitor 40 40 mg PO DAILY #30 tab 03/07/18 mg (*)] Lisinopril [Zestril 20 mg (*)] 20 mg PO DAILY #30 tab 03/07/18 Nitroglycerin [Nitrostat 0.4 mg 0.4 mg SL Q5M PRN #1 btl 03/07/18 (*)] Prasugrel HCl [Effient 10mg (*)] 10 mg PO DAILY #30 tab 03/07/18 Medical Decision Making - Diagnostics EKG Interpretation: EKG: Complete interpretation has been separately recorded in the [employer] archive. Summary impression: Sinus rhythm, rate 64, no ischemic changes noted ED Course/Re-evaluation: The patient presents to the ED with intermittent chest pain for the past week. The patient does have a history of coronary artery disease and did undergo of stenting earlier in February. She has been maintained on Plavix since that time. The patient presented today with complaints of chest pain that woke her from sleep this morning. It continues have however has lessened. Workup in the emergency department demonstrates an EKG which demonstrates no evidence of ischemia. The patient does have a troponin which is normal. The patient presents to the ED with chest pain which has been intermittent and somewhat atypical in nature. I did consult with Dr. Abdifatah Banks from Cardiology at 10:00 a.m. who will evaluate the patient in the emergency department for further recommendations. The patient was seen by Dr. Banks who feels that her chest pain is not billing representative of acute coronary syndrome. He does recommend treating her with NSAIDs for presumed costochondritis. The patient will be discharged home with instructions to return to the ED for markedly worsening symptoms or other concerns. She will follow up with Cardiology as scheduled. Differential Diagnosis: Differential diagnosis considered includes acute coronary syndrome, pericarditis , pulmonary embolism, costochondritis, esophageal spasm - Data Points Laboratory Results: Laboratory Results 04/26/18 09:20 04/26/18 09:20 04/26/18 04/26/18 04/26/18 09:22 09:20 09:20 WBC 6.52 10^3/uL 10^3/uL (3.80-9.50) RBC 5.14 10^6/uL 10^6/uL (4.18-5.33) Hgb 16.0 g/dL g/dL (12.6-16.3) Hct 46.7 % % (38.0-47.0) MCV 90.9 fL fL (81.5-99.8) MCH 31.1 pg pg (27.9-34.1) MCHC 34.3 g/dL g/dL (32.4-36.7) RDW 14.0 % % (11.5-15.2) Plt Count 202 10^3/uL 10^3/uL (150-400) MPV 9.6 fL fL (8.7-11.7) Neut % (Auto) 61.2 % % (39.3-74.2) Lymph % (Auto) 27.3 % % (15.0-45.0) [place] % (Auto) 8.1 % % (4.5-13.0) Eos % (Auto) 2.1 % % (0.6-7.6) Baso % (Auto) 1.1 % % (0.3-1.7) Nucleat RBC Rel Count 0.0 % % (0.0-0.2) Absolute Neuts (auto) 3.99 10^3/uL 10^3/uL (1.70-6.50) Absolute Lymphs (auto) 1.78 10^3/uL 10^3/uL (1.00-3.00) Absolute Monos (auto) 0.53 10^3/uL 10^3/uL (0.30-0.80) Absolute Eos (auto) 0.14 10^3/uL 10^3/uL (0.03-0.40) Absolute Basos (auto) 0.07 10^3/uL 10^3/uL (0.02-0.10) Absolute Nucleated RBC 0.00 10^3/uL 10^3/uL (0-0.01) Immature Gran % 0.2 % % (0.0-1.1) Immature Gran # 0.01 10^3/uL 10^3/uL (0.00-0.10) Sodium 142 mEq/L mEq/L (135-145) Potassium 4.6 mEq/L mEq/L (3.3-5.0) Chloride 106 mEq/L mEq/L (97-110) Carbon Dioxide 26 mEq/l mEq/l (22-31) Anion Gap 10 mEq/L mEq/L (6-14) BUN 15 mg/dL mg/dL (7-23) Creatinine 0.7 mg/dL mg/dL (0.6-1.0) Estimated GFR > 60 Glucose 101 mg/dL H mg/dL (70-100) Calcium 9.9 mg/dL mg/dL (8.5-10.4) POC Troponin I 0.00 ng/mL ng/mL (0.00-0.08) Medications Given: Lidocaine/Diphenhydramine/Alumin/Mg (Maalox/Diphenhydramine/Lido) 5 ml PO PRN PRN PRN Reason: Mucositis, Mouth Pain Stop: 10/23/18 10:57 Last Admin: 04/26/18 11:06 Dose: 1 dose Point of Care Test Results: Chemistry 04/26/18 09:22 POC Troponin I 0.00 ng/mL ng/mL (0.00-0.08) Departure - Departure Disposition: Home, Routine, Self-Care Clinical Impression: Chest wall pain Condition: Good Instructions: Chest Wall Pain (ED) Additional Instructions: 1. He was seen by the screen room operator Dr. Banks in the emergency department who recommends treating your chest pain with ibuprofen. Take Ibuprofen or Motrin 600 mg by mouth three times a day. 2. Please return to the ED for markedly worsening symptoms, exertional chest pain, shortness of breath or other concerns. 3. Please follow up with your screen room operator and primary care provider as scheduled. Referrals: Holly Ocasio MD [Primary Care Provider] - As per Instructions
[2018-04-26 09:30] LABS: PLATELET COUNT 202 10^3/uL (150-400)
--- NOTE | 2018-04-26 10:14 | CPEKG ---
Test Reason : OPEN Blood Pressure : / mmHG Vent. Rate : 064 BPM Atrial Rate : 065 BPM P-R Int : 146 ms QRS Dur : 082 ms QT Int : 406 ms P-R-T Axes : 039 -04 037 degrees QTc Int : 419 ms Sinus rhythm Confirmed by Shaquille Zamora ([id number]) on 04/26/2018 10:14:17 AM Referred By: Confirmed By:Shaquille Zamora
[2018-04-26] MEDS ORDERED: MBX SOLN 30 ML BOTTLE PO PRN (10:58)
[2018-04-26] MEDS ORDERED: MAG HYDROX/AL HYDROX/SIMETH 30 ML UDCUP ONE (11:04)
[2018-04-26] MEDS ORDERED: LIDOCAINE 2% VISCOUS 15 ML UDCUP ONE (11:04)
--- NOTE | 2018-04-26 12:14 | GCON ---
CARDIOLOGY CONSULTATION DATE OF CONSULTATION: 04/26/2018 REFERRING PHYSICIAN: Shaquille Zamora MD INDICATIONS: Known CAD, recurrent chest discomfort. HISTORY OF PRESENT ILLNESS: The patient is a very pleasant 68-year-old female seen in consultation a t the request of Dr. Shaquille Zamora in the emergency department. She has known coronary artery disea se. She initially presented on March 05. At that time, she was experiencing symptoms of chest discomfort. This was associated with an abnormal ECG indicating biphasic T-wave inversions anterior ly. Furthermore, she was noted to have elevated cardiac enzymes with a troponin that peaked during t [facility] hospitalization at 0.359. Ultimately, she underwent cardiac catheterization, which was performed by Dr. Nguyen on March 06, 2018. That procedure demonstrated subtotal occlusion of the LAD at the origin of the 1st diagonal branch. This is associated with a normal ejection fraction. She und erwent PCI and stenting with placement of single drug coated stent in the LAD. This crossed the osti um of the diagonal branch, which was treated with balloon angioplasty. Her ventriculogram at that ti il was noted to be normal. Ultimately, she was discharged from the hospital on the . She has be en taking dual anti-platelet therapy with aspirin and Effient and has been on lisinopril for blood pr essure control, as well as an intermediate dose of atorvastatin. She states that she has been compli ant with her medications. She notes that she has had recurrent chest discomfort now for about a week. These are described as e pisodes that occur spontaneously and tend to be low intensity. She describes a sensation of left-harshal ed chest pain, which occurs in 2 specific areas immediately below her left breast and immediately to the left of the midline. Sometimes, these are described as heavy, other times, they have been sharp. They have not been associated with dyspnea. She has not had any palpitations. She notes no dizzin ess or lightheadedness. Her symptoms are not precipitated by meals or activities. She has had sympt oms present now for about a week off and on. As a result, she called our office and was advised to c ome to the emergency department. Currently, she is having low level chest discomfort graded as 1/10 in intensity. In reviewing the available data, her electrocardiogram demonstrates normal sinus rhythm and is normal . Previously noted anterior T-wave changes have resolved. She is slightly hypertensive with systoli cs in the 140s and diastolics in the 90s. She has no oxygen requirement. Her initial troponins are negative. She notes that she has had a little bit more dyspepsia lately than she has had in the past. She has not had any injury to the chest wall. She denies fever, chills, or sweats. There is no history of c ough. She notes no sputum production. The chest pain is not respirophasic. She has not had calf te nderness. There is no history of DVT or PE. PAST MEDICAL HISTORY: 1. Coronary artery disease as described above. 2. Hypertension. 3. Hypothyroidism. 4. History of malignant melanoma, status post surgical resection in 2005. PAST SURGICAL HISTORY: Previous appendectomy in 1977. SOCIAL HISTORY: She is and accompanied by her and her daughter. She has never smoke d. She uses alcohol socially. She does not use drugs. She is very active. 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 FAMILY HISTORY: At this point is noncontributory. REVIEW OF SYSTEMS: A full 10-point review of systems was performed, is otherwise negative. PHYSICAL EXAMINATION: VITAL SIGNS: Currently, blood pressure is 126/99 with a mean of 108. Her hea rt rates been in the 60s to 80s. O2 saturations are in the 90s on room air. She is afebrile. GENER AL: She is a healthy white female in no acute distress. She is alert and oriented with a pleasant m ood and affect. She is conversive and appropriate. HEENT: Normocephalic atraumatic. She has anict guzman sclerae. Oropharynx unremarkable. NECK: Carotids 2+ bilaterally with no bruit. She has no ju gular venous distention or palpable lymph nodes. RESPIRATORY: She is breathing easy, resting comfor tably, using no accessory muscle. On auscultation, clear lung peterson bilaterally. CARDIAC: Precord ial inspection is unremarkable. She has mild reproducible chest wall tenderness to the left of midli ne. PMI is nonpalpable. On auscultation, she has regular rate and rhythm without murmurs, gallops, or rubs. ABDOMEN: Soft, nontender with normoactive bowel sounds and no masses. She has nonpalpable aorta. EXTREMITIES: Warm, dry, well perfused. She has no lower extremity edema. NEUROLOGIC: She moves all 4 limbs spontaneously. DATABASE: Her electrocardiogram demonstrates normal sinus rhythm with no ST or T changes. Her elect rolytes are normal. Initial fibpe-xa-hpdp troponin was 0. CBC is unremarkable. IMPRESSION: The patient is 68 years old with a cardiovascular history as detailed above, which inclu stu percutaneous coronary intervention and stenting of the left anterior descending and plain old bal loon angioplasty of the diagonal branch March 06, 2018. At that time, she presented with classic symptoms, a classic electrocardiogram, and elevated cardiac biomarkers. Today, she presents with atypical chest discomfort, which has been intermittent off and on throughout the last week. She appears very comfortable in the emergency department. Clinically, her chest jacquelyn n syndrome is unlikely to be related to her underlying cardiovascular disease. Additionally, her carolynn ctrocardiogram is normal and cardiac enzymes are negative despite a week's worth of chest discomfort and fairly protracted symptoms that often times last for a day at a time. Additionally, she has had an increasing symptoms of dyspepsia. I wonder if her symptoms might be of a gastrointestinal in nature. She and I talked about her chest pain in the setting of her coronary disease. I also suggested to he r that I do not think that this is related to an underlying cardiac process. RECOMMENDATIONS: I would like to see if we get her pain-free prior to discharge from the emergency d epartment. I have ordered a GI cocktail. If this is successful at alleviating her chest pain, I thi nk that she can be discharged and follow up with Dr. Nguyen. She has an appointment to see Dr. Raimundo michael already tomorrow. In the absence of being able to control her pain, I think that she would best effectively be risk str atified with coronary angiography. She is not anxious to undergo another coronary angiogram, and at this point, I do not think it is necessary. We can discuss that further depending on her response to the above-noted intervention. /[id number]/MODL
[2018-04-26] MEDS ORDERED: KETOROLAC 15 MG/1 ML SDV IVP ONE (12:30)
[2018-04-26 12:43] VITALS: BP 131/80
== END 2018-04-26 12:58 | disposition home or self-care (01) ==
DX: R07.89 Other chest pain (principal); I25.10 Atherosclerotic heart disease of native coronary artery without angina pectoris; I10 Essential (primary) hypertension; R10.13 Epigastric pain; Z79.82 Long term (current) use of aspirin; Z79.02 Long term (current) use of antithrombotics/antiplatelets; Z95.5 Presence of coronary angioplasty implant and graft; Z79.899 Other long term (current) drug therapy
CPT/HCPCS: 84484-PO; 96374; J1885